=== PATIENT | female | born 1960 | race Caucasian/White ===

== ENCOUNTER → 2021-05-15 | Outpatient (CLI) | payer OTHER ==
[~2021-05-15] MED LIST: ASPIR-LOW81 MG PO; ATIVAN0.5 MG PO; BREO ELLIPTA 11 EACH INH; CELEXA20 MG PO; CLEOCIN HCL300 MG PO; FLOMAX0.4 MG PO; K-DUR TAB 10 M10 MEQ PO; NORCO 7.5-3251 EACH PO; POTASSIUM CHLO20 ME2 PO; PROTONIX40 MG PO; SYNTHROID50 MCG PO; TESSALON PERLE100 MG PO; TORADOL 10 MG T10 MG PO; VENTOLIN HFA 66.7 GM INH; ZITHROMAX250 MG PO; ZOCOR10 MG PO; ZOFRAN4 MG PO
== END ==
LOC: KOH-I 13:37
DX: F17.210 Nicotine dependence, cigarettes, uncomplicated (principal); R91.8 Other nonspecific abnormal finding of lung field
CPT/HCPCS: 71271

== ENCOUNTER → 2021-09-05 | Outpatient (CLI) | payer OTHER | LOC: LAB 11:48 | DX: Z20.822 Contact with and (suspected) exposure to COVID-19 (principal) | CPT/HCPCS: U0002 ==

== ENCOUNTER → 2021-10-27 | Outpatient (CLI) | payer OTHER | LOC: HEART 5 08:00 | DX: R07.9 Chest pain, unspecified (principal); R94.31 Abnormal electrocardiogram [ECG] [EKG] | CPT/HCPCS: 78452; 93306; A9502; J2785 ==

== ENCOUNTER → 2021-11-24 | Outpatient (CLI) | payer MEDICARE, OTHER | LOC: KOH-I 09:42 | DX: R10.84 Generalized abdominal pain (principal); K76.0 Fatty (change of) liver, not elsewhere classified | CPT/HCPCS: 76700 ==